=== PATIENT | female | born 1990 | race Caucasian/White ===

== ENCOUNTER 2016-12-30 03:00 | Emergency (ER) | payer OTHER ==
[~2016-12-30] VITALS: Ht 165.1 cm; Wt 94.8 kg
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
[2016-12-30] MEDS ORDERED: TRAMADOL HCL50 M1 PO (06:17)
[2016-12-30] MEDS ORDERED: IBUPROFEN800 M1 PO (06:17)
[2016-12-30] MEDS ORDERED: KEFLEX500 M1 PO (06:17)
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
[2016-12-30 06:31] VITALS: BP 130/86
== END 2016-12-30 06:57 ==
LOC: ERH 03:00
DX: S80.812A Abrasion, left lower leg, initial encounter (principal); V18.0XXA Pedal cycle driver injured in noncollision transport accident in nontraffic accident, initial encounter; Y92.9 Unspecified place or not applicable; Y93.9 Activity, unspecified
CPT/HCPCS: 72170; 73552; 73562-LT; 81025; 90471; 90714; 96374; J1885